=== PATIENT | male | born 1985 | race Caucasian/White ===

== ENCOUNTER → 2019-02-09 09:36 | Outpatient (CLI) | payer OTHER, SELFPAY ==
--- NOTE | 2019-02-09 09:46 | MRI_ITS ---
STUDY: MR LEFT SHOULDER ARTHROGRAPHY REASON FOR EXAM: Left shoulder pain for 1.5 years, original injury from a fall with reinjury lifting weights 3 weeks ago. TECHNIQUE: Standardized fat and water weighted pulse sequences were obtained in all 3 orthogonal planes after intra-articular instillation of dilute Dotarem. COMPARISON: Arthrographic radiographs obtained prior to the MRI. FINDINGS: There is a full-thickness tear of the supraspinatus and infraspinatus tendons retracted approximately 3.8 cm to the level of the glenohumeral joint (T1 coronal images 6-15). There is iatrogenic contrast in the subscapularis tendon. Normal teres minor tendon. Normal supraspinatus muscle. Normal infraspinatus muscle. Normal subscapularis muscle. Normal teres minor muscle. Normal glenohumeral articulation. There is superior migration of the humeral head secondary to the retracted rotator cuff tear. Normal biceps labral complex. Normal intracapsular long biceps tendon. Normal labrum. Normal capsulo- ligamentous complex. There is mild acromioclavicular arthrosis without substantial undersurface osteophytes (T2 sagittal image 6). There is a Type II morphology (curved), with a neutral orientation. There is dilute gadolinium in the subacromial-subdeltoid bursa. Normal visualized coracohumeral and coracoacromial ligaments. Normal deltoid muscle. Normal trapezius muscle. MRI/Upper Ext Jt Only W/Contrast IMPRESSION: Full-thickness tear of the supraspinatus and infraspinatus tendons. Mild acromioclavicular arthrosis. Electronically Signed: Romel Cesar MD at 13:47 EST Tel , Service support ,
--- NOTE | 2019-02-09 10:03 | RAD_ITS ---
CLINICAL HISTORY: Male, 33 years old. Left shoulder pain following injury. PROCEDURE: ARTHROGRAM - LEFT SHOULDER. CONSENT: The procedure as well as the benefits and possible complications including infection and bleeding were explained to the patient. Informed consent was obtained. FLUOROSCOPY TIME (if supplied): (36 seconds) minutes/seconds. Injection Information: 10 cc of dilute MRI contrast. Number of images obtained: 5 TECHNIQUE: (All elements of maximal sterile barrier technique followed, including US elements as applicable) The patient was in the supine position. The overlying skin was prepped and draped in usual sterile fashion. Following local anesthetic application and under direct fluoroscopic guidance, a 22-gauge spinal needle was placed into the left shoulder joint. 2 cc of Isovue-300 was injected for confirmation. Following this, 10 cc of dilute MRI contrast was injected. The patient tolerated the procedure well. RAD/Arthrogram Shoulder w/ MRI IMPRESSION: Left shoulder arthrogram for MRI examination. Electronically Signed: Juan Kc, at 11:08 EST , Service support ,
== END ==
PROVIDERS: Family Provider Family Medicine; PCP Family Medicine; Referring Provider Physician Assistant; Visit Provider Physician Assistant
DX: M65.812 Other synovitis and tenosynovitis, left shoulder (principal)
CPT/HCPCS: 23350; 73222; 77002; A9575; Q9967

== ENCOUNTER → 2019-03-30 11:34 | Outpatient (CLI) | payer OTHER, SELFPAY ==
--- NOTE | 2019-03-30 11:47 | EKG12_ITS ---
Test Reason : PRE-OP Blood Pressure : / mmHG Vent. Rate : 088 BPM Atrial Rate : 088 BPM P-R Int : 132 ms QRS Dur : 102 ms QT Int : 360 ms P-R-T Axes : 026 013 019 degrees QTc Int : 435 ms Normal sinus rhythm Normal ECG Confirmed by RAULITO GRIMM, DAVID ([id number]), editorial cartoonist ANTONIETTA BENNETT ([id number]) on 03/31/2019 9:04:26 AM Referred By: Chris Aguilar Confirmed By:DAVID CABEZAS MD
[2019-03-30 12:47] LABS: Hematocrit 49.4 % (40-54); Hemoglobin 16.6 g/dL (13.0-16.5); Mean Corp Hgb Conc 33.6 g/dL (32-36); Mean Corpuscular Hgb 29.3 pg (27.0-32.0); Mean Corpuscular Volume 87.3 fL (80-94); Mean Platelet Vol. 10.5 fl (6.2-12.0); Platelet Count 146 K/mm3 (150-450); RBC Distribution Width CV 12.4 % (11.6-14.6); RBC Distribution Width SD 39.3 fl (35.1-43.9); Red Blood Count 5.66 M/mm3 (4.6-6.2); White Blood Count 6.5 K/mm3 (4.4-11.0)
[2019-03-30 13:28] LABS: Anion Gap 5 (5-15); BUN 15 mg/dL (7-18); BUN/Creat Ratio 12.8 RATIO (10-20); Calcium,Total 9.5 mg/dL (8.5-10.1); Chloride 104 mmol/L (98-107); Creatinine, Serum 1.17 mg/dL (0.70-1.30); EST Glomerular Filtration Rate 76 mL/min (>60); Est Glom Filt Rate - Afr Amer 91 mL/min (>60); Glucose 91 mg/dL (74-106); Potassium 3.6 mmol/L (3.5-5.1); Sodium Level 139 mmol/L (136-145)
== END ==
PROVIDERS: PCP Family Medicine; Referring Provider Physician Assistant; Visit Provider Physician Assistant
DX: Z01.818 Encounter for other preprocedural examination (principal)
CPT/HCPCS: 36415; 80048; 85027; 93005